=== PATIENT | male | born 1985 | race Caucasian/White ===

== ENCOUNTER 2024-10-18 19:57 | Emergency (ER) | payer MEDICAID ==
[~2024-10-18] VITALS: Ht 167.6 cm; Wt 90.2 kg
[~2024-10-18 19:57] MED LIST: POLY17PO10 PO
[2024-10-18 20:06] VITALS: BP 131/77; PULSE 62; RESP 16; O2SAT 98
[2024-10-18] MEDS ORDERED: SENN-302 PO (20:31)
--- NOTE | 2024-10-18 20:31 | Physician Documentation ---
History of Present Illness Chief Complaint: See Chief Complaint Stated Complaint: SOB Time Seen by MD: 20:24 Primary Medical Doctor: none HPI Patient is seen today with complaints of abdominal pain. Patient states he has been in and out of the ER in his 30 our visit and he has previously had CT scan and ultrasound done recently that showed no sign of gallbladder disease. Patient states he has right upper quadrant and left upper quadrant abdominal pain that vacillates and sometimes lower back pain. Patient states that he was previously given Relistor injection a week or so ago and he did pass a large amount of stool and felt better for time but states that he got back to begin this last week. He was given some MiraLax and senna but states he stopped taking it. He denies any fever or chills in his no other concern or complaint at this time. Medication Reconciliation Allergies: Coded Allergies: Penicillins (Unverified Allergy, Unknown, 10/18/24) Scheduled Polyethylene Glycol 3350* (Miralax*), 1 PKT PO DAILY Past Medical History Past Medical History: No Pertinent History Past Surgical History: noncontributory Patient History: FH: breast cancer FH: esophageal cancer Alcohol Use: Rarely Drug Use: methamphetamine Lives with: Family Lives In: Home Review of Systems Constitutional: Denies: chills, fever, weakness Eyes: Denies: pain, blurred vision ENT: Denies: ear pain, nose pain, throat pain, mouth pain Respiratory: Denies: cough, shortness of breath Cardiovascular: Denies: chest pain, palpitations Gastrointestinal: Denies: abdominal pain, nausea, vomiting Genitourinary: Denies: burning, dysuria Male Genitalia: Denies: penile discharge, testicular pain Neurological: Denies: headache, dizziness Musculoskeletal: Denies: pain, swelling Integumentary: Denies: rash, lesions Allergic/Immunologic: Denies: hives, itching Hematologic/Lymphatic: Denies: no symptoms reported Psychiatric: Denies: depression, anxiety Physical Exam Vital Signs: Temperature: 97.5, Source: Temporal, Heart Rate: 62, Respiratory Rate: 16, BP: 131/77, Pulse Oximetry: 98, Weight: 90.200 Oxygen Flow Rate: 0 Physical Exam General: Awake and Alert, no acute distress. HEENT: Conjunctiva pink, Sclera clear, Mucus Membranes moist. Neck: Supple without masses and tenderness. Resp: Unlabored. Lungs clear to auscultation bilaterally. Heart: Regular Rate and rhythm, normal S1 and S2 without murmur, rub or gallop. Abdomen: On exam patient does have mild right upper quadrant and left upper quadrant abdominal tenderness to palpation, abdomen is soft and nondistended and no masses, no guarding or rebound tenderness. Extremities: No cyanosis,clubbing or edema. Skin: Warm and Dry. Progress Results/Orders Results/Orders Vital Signs 10/18/24 20:06 Temp 97.5 Pulse 62 Resp 16 B/P (MAP) 131/77 Pulse Ox 98 O2 Flow Rate 0 Medical Decision Making Findings Patient is seen today with complaints of abdominal pain. Patient states he has been in and out of the ER in his 30 our visit and he has previously had CT scan and ultrasound done recently that showed no sign of gallbladder disease. Patient states he has right upper quadrant and left upper quadrant abdominal pain that vacillates and sometimes lower back pain. Patient states that he was previously given Relistor injection a week or so ago and he did pass a large amount of stool and felt better for time but states that he got back to begin this last week. He was given some MiraLax and senna but states he stopped taking it. He denies any fever or chills in his no other concern or complaint at this time. Patient was given senna and MiraLax in the ED tonight along with prescription for senna and stool softener. Patient will take as prescribed and will take MiraLax as well as needed. Patient will return to ED with any worsening, concerning or changing symptoms. Patient declined the Relistor injection today. Departure Disposition: 01 HOME / SELF CARE / HOMELESS Impression: Primary Impression: Opioid-induced constipation Condition: Stable Discharge Instructions: Chronic Constipation Additional Instructions: Patient was given senna and MiraLax in the ED tonight along with prescription for senna and stool softener. Patient will take as prescribed and will take MiraLax as well as needed. Patient will return to ED with any worsening, concerning or changing symptoms. Patient declined the Relistor injection today. Referrals: NO PRIMARY CARE PROVIDER (PCP) Prescriptions Sennosides/Docusate Sodium (Senna Plus 8.6-50 mg Tablet) 8.6 Mg-50 Mg Tablet 2 TAB PO TID for 14 Days, #84 TAB 0 Refills Prov: CASEY MALONEY PAC 10/18/24 Signature Scribe Signature: No scribe Attestation: No scribe CASEY MALONYE Oct 18, 2024 20:31
[2024-10-18 20:39] VITALS: TEMP 97.5
[2024-10-18] MEDS: polyethylene glycol 3350 17gm powd pack PO STA (20:41)
== END 2024-10-18 20:44 | disposition home or self-care (01) ==
LOC: ER 19:58
DX: K59.03 Drug induced constipation (principal); K59.00 Constipation, unspecified; M54.50 Low back pain, unspecified; R10.11 Right upper quadrant pain; Z88.0 Allergy status to penicillin; Y92.89 Other specified places as the place of occurrence of the external cause
CPT/HCPCS: 99283

== ENCOUNTER 2024-11-22 10:44 | Emergency (ER) | payer MEDICAID ==
[~2024-11-22] VITALS: Ht 167.6 cm; Wt 87.5 kg
[~2024-11-22 10:44] MED LIST changes: -POLY17PO10 PO; +SENN-302 PO
[2024-11-22 10:47] VITALS: TEMP 97.9
--- NOTE | 2024-11-22 10:52 | Physician Documentation ---
History of Present Illness ~ Chief Complaint: Constipation Stated Complaint: ABD PAIN Time Seen by MD: 10:50 Primary Medical Doctor: none HPI 39-year-old male presents to the ED with reported abdominal pain. Patient is a methadone patient and has been treated for constipation before via Relister. This is a bowel movement yesterday. denies any fevers reports increased abdominal pain in the left lower quad Has a history of hepatitis-C Day of Onset: Nov 22, 2024 Medication Reconciliation Allergies: Coded Allergies: Penicillins (Unverified Allergy, Unknown, 11/22/24) Scheduled Sennosides/Docusate Sodium (Senna Plus 8.6-50 mg Tablet), 2 TAB PO TID Past Medical History Past Medical History: No Pertinent History Past Surgical History: noncontributory Patient History: FH: breast cancer FH: esophageal cancer Alcohol Use: Rarely Drug Use: methamphetamine Lives with: Family Lives In: Home Review of Systems All Other Systems at this time: Reviewed and Negative ROS As stated above in the HPI, otherwise all systems are reviewed and negative. Physical Exam Vital Signs: Temperature: 97.9, Source: Oral, Heart Rate: 63, Respiratory Rate: 17, BP: 129/76, Pulse Oximetry: 99, Weight: 87.500 Physical Exam General: Alert, no apparent distress. Gastrointestinal: Soft, nontender, nondistended. Bowels sounds present. pain RLQ, and LLQ Neurologic: Oriented x4. Psychiatric: Normal mood and affect. Skin: Normal color, warm and dry. No edema, no ecchymosis. Progress Results/Orders Results/Orders Orders - DANIELE SOLO ASSISTANT COMMUNITY MANAGER Abdomen,Single View(Kub) (11/22/24 11:04) Completed Orders - DANIELE SOLO ASSISTANT COMMUNITY MANAGER Urinalysis, Cult If Indicated (11/22/24 11:02) Cbc/Diff (11/22/24 11:02) BMP (11/22/24 11:02) Lipase (11/22/24 11:02) CMP (11/22/24 11:02) Abdomen,Single View(Kub) (11/22/24 11:04) Methylnaltrexone Br Inj (Relistor Inj (11/22/24 11:15) Medications Received in ER Medications (Trade) Dose Ordered Sig/Re Route PRN Reason Start Time Stop Time Status Last Admin Dose Admin (Relistor inj SubQ only) 12 mg ONCE ONCE SQ 11/22/24 11:15 11/22/24 11:16 DC 11/22/24 12:43 12 MG Vital Signs 11/22/24 11/22/24 11/22/24 10:47 11:11 12:46 Temp 97.9 Pulse 63 68 Resp 17 18 B/P (MAP) 129/76 111/78 (89) Pulse Ox 99 96 O2 Flow Rate 0 Laboratory Tests Test 11/22/24 11:14 11/22/24 11:31 Urine Specimen Description Cln catch midstream Urine Color Yellow Urine Clarity Clear Urine pH 6.5 Urine Specific [place] >=1.030 Urine Protein Negative Urine Glucose (UA) Negative Urine Ketones Negative Urine Occult Blood Negative Urine Nitrite Negative Urine Bilirubin Negative Urine Urobilinogen 0.2 Urine Leukocyte Esterase Negative Urine Culture Indicated Not ind Volume Urine Centrifuged 10 ml Urine Comment White Blood Count 8.3 Red Blood Count 4.78 Hemoglobin 14.0 Hematocrit 41.4 L Mean Corpuscular Volume 86.5 Mean Corpuscular Hemoglobin 29.4 Mean Corpuscular Hemoglobin Concent 33.9 Red Cell Distribution Width 14.0 Platelet Count 238 Mean Platelet Volume 8.4 Neutrophils (%) (Auto) 51.9 Lymphocytes (%) (Auto) 38.7 Monocytes (%) (Auto) 7.3 Eosinophils (%) (Auto) 1.8 Basophils (%) (Auto) 0.3 Neutrophils # (Auto) 4.3 Lymphocytes # (Auto) 3.2 Monocytes # (Auto) 0.6 Eosinophils # (Auto) 0.1 Basophils # (Auto) 0.0 CBC Comment Sodium Level 143 Potassium Level 4.2 Chloride Level 107 Carbon Dioxide Level 28.8 Anion Gap 7 L Blood Urea Nitrogen 20 H Creatinine 0.93 Estimated GFR/1.73 m2 90 BUN/Creatinine Ratio 21.5 H Glucose Level 113 H Calcium Level 9.0 Total Bilirubin 0.5 Aspartate Amino Transf (AST/SGOT) 79 H Alanine Aminotransferase (ALT/SGPT) 164 H Alkaline Phosphatase 78 Total Protein 8.1 Albumin 3.9 Globulin 4.2 Albumin/Globulin Ratio 0.9 L Lipase 26 Chemistry Comments Medical Decision Making Findings This patient presents with suspected constipation secondary to ongoing methadone use. Dogs are unremarkable. I did provide him with Relistor while in the ED. I did talk to the patient at his symptoms if they persist after receiving med ication for discussed with the to take MiraLax while regularly receiving methadone. Specific on return precautions if his symptoms persist or worsen he needs to return to the ED Diff Dx GI Bleed:Consideration: Include: AE fistula, Angiodysplasia, Bleeding diathesis, Blood loss anemia, Carcinoma, Diverticulosis, Diverticulitis, Esophageal varicies, Esophagitis, Gastritis, Gastroenteritis, Inflammatory BD, Katheryn-John syndrome, Meckel's diverticulum, PUD, Other Departure Disposition: 01 HOME / SELF CARE / HOMELESS Impression: Primary Impression: Constipation Additional Impression: Opioid-induced constipation Condition: Stable Discharge Instructions: Constipation, Adult Referrals: NO PRIMARY CARE PROVIDER (PCP) Signature Scribe Signature: hy Attestation: Scribed for Daniele Solo License And Permit Specialist by Daniele Monroe NP . 11/22/24 12:52 DANIELE SOLO NP Nov 22, 2024 10:52
[2024-11-22 11:37] LABS: MEAN PLATELET VOLUME 8.4 FL (7.4-10.4); RED CELL DISTRIBUTION WIDTH 14.0 % (11.5-14.5)
[2024-11-22 11:37] LABS: LEUKOCYTE ESTERASE ,URINE NEGATIVE (Neg); NITRITES, URINE NEGATIVE (Neg); OCCULT BLOOD,URINE NEGATIVE (Neg)
[2024-11-22 11:42] LABS: UA COLLECTION TYPE CLN CATCH MIDSTREAM
[2024-11-22 11:56] LABS: CREATININE 0.93 MG/DL (0.60-1.10); TOTAL CARBON DIOXIDE 28.8 MMOL/L (24-32); eCRCL 95 ML/MIN; eGFR 90 ML/MIN
[2024-11-22] MEDS: methylnaltrexone br 12mg/0.6ml inj***SubQ only SQ ONE (12:43)
[2024-11-22 12:46] VITALS: BP 111/78; PULSE 68; RESP 18; O2SAT 96
--- NOTE | 2024-11-22 14:40 | RADIOLOGY REPORT ---
ABDOMEN, (KUB) ONE VIEW REASON FOR EXAM: constipation COMPARISON: DI ABDOMEN,SINGLE VIEW(KUB) on DOS: 09/23/24 TECHNIQUE: A single view of the abdomen is obtained. FINDINGS: The bowel gas pattern is nonobstructive. No abnormal calcification is identified. The colonic stool burden is small. There is no supine evidence of pneumoperitoneum. No acute osseous abnormality is identified. IMPRESSION: No acute abnormality.
== END 2024-11-22 13:39 | disposition home or self-care (01) ==
LOC: ER 10:45
DX: K59.03 Drug induced constipation (principal); T40.2X5A Adverse effect of other opioids, initial encounter; F15.90 Other stimulant use, unspecified, uncomplicated; Z88.0 Allergy status to penicillin; Y92.89 Other specified places as the place of occurrence of the external cause
CPT/HCPCS: 36415; 74018; 80053; 81003; 83690; 85025; 96372; 99284; J2212

== ENCOUNTER 2024-12-02 10:12 | Emergency (ER) | payer MEDICAID ==
[~2024-12-02] VITALS: Ht 167.6 cm; Wt 89.0 kg
[2024-12-02 12:18] LABS: STREP A SCREEN POSITIVE (Neg)
--- NOTE | 2024-12-02 12:20 | Physician Documentation ---
History of Present Illness ~ Chief Complaint: Sore Throat Stated Complaint: SORE THROAT Time Seen by MD: 10:47 Primary Medical Doctor: none HPI Patient is seen today with complaints of sore throat that started couple of days ago. Patient denies any dental pain and denies any fevers or chills or body aches and has no other concern or complaint at this time. Patient also complai ns of opioid induced constipation. And states he has taken Relistor successfully in the past. Medication Reconciliation Allergies: Coded Allergies: Penicillins (Unverified Allergy, Unknown, 12/02/24) Scheduled Clindamycin HCl (Clindamycin HCl), 1 CAP PO Q8H Ibuprofen (Ibuprofen), 1 TAB PO Q8H Methylprednisolone (Medrol Dosepak), 0 PO UD Sennosides/Docusate Sodium (Senna Plus 8.6-50 mg Tablet), 2 TAB PO TID Scheduled PRN Acetaminophen (Tylenol Extra Strength), 2 TAB PO Q6H PRN PRN for pain or fever Past Medical History Past Medical History: No Pertinent History Past Surgical History: noncontributory Patient History: FH: breast cancer FH: esophageal cancer Alcohol Use: Rarely Drug Use: methamphetamine Lives with: Family Lives In: Home Review of Systems Constitutional: Denies: chills, fever, weakness Eyes: Denies: pain, blurred vision ENT: Denies: ear pain, nose pain, throat pain, mouth pain Respiratory: Denies: cough, shortness of breath Cardiovascular: Denies: chest pain, palpitations Gastrointestinal: Denies: abdominal pain, nausea, vomiting Genitourinary: Denies: burning, dysuria Male Genitalia: Denies: penile discharge, testicular pain Neurological: Denies: headache, dizziness Musculoskeletal: Denies: pain, swelling Integumentary: Denies: rash, lesions Allergic/Immunologic: Denies: hives, itching Hematologic/Lymphatic: Denies: no symptoms reported Psychiatric: Denies: depression, anxiety Physical Exam Vital Signs: Temperature: 98.4, Source: Temporal, Heart Rate: 80, Respiratory Rate: 16, BP: 131/62, Pulse Oximetry: 99, Weight: 89.000 Oxygen Flow Rate: 0 Physical Exam General: Awake and Alert, no acute distress. HEENT: Patient exam does have significant erythema of the oropharynx with some mild deviation of the uvula with some swelling noted of the to peritonsillar fold and anterior pillar on the left side. Conjunctiva pink, Sclera clear, Mucus Membranes moist. Neck: Supple without masses and tenderness. Resp: Unlabored. Lungs clear to auscultation bilaterally. Heart: Regular Rate and rhythm, normal S1 and S2 without murmur, rub or gallop. Abdomen: Patient on exam has no guarding, no rebound, abdomen is nondistended, grossly nontender to palpation. Extremities: No cyanosis,clubbing or edema. Skin: Warm and Dry. Progress Results/Orders Results/Orders Orders - CASEY MALONEY Methylnaltrexone Br Inj (Relistor Inj (12/02/24 12:35) Completed Orders - CASEY MALONEY Strep A Rapid (12/02/24 12:03) Clindamycin Capsule (Cleocin Capsule) (12/02/24 12:07) Triamcinolone Acet 40mg/Ml Inj (Kenalog- (12/02/24 12:07) Influenza Type A&B Rapid Test (12/02/24 12:04) Ketorolac Trometh 30mg/Ml Vial (Toradol (12/02/24 12:21) Medications Received in ER Medications (Trade) Dose Ordered Sig/Re Route PRN Reason Start Time Stop Time Status Last Admin Dose Admin (Cleocin capsule) 300 mg ONCE STAT PO 12/02/24 12:07 12/02/24 12:14 DC 12/02/24 12:26 300 MG (Kenalog-40 inj) 80 mg ONCE STAT IM 12/02/24 12:07 12/02/24 12:14 DC 12/02/24 12:24 80 MG Vital Signs 12/02/24 10:18 Temp 98.4 Pulse 80 Resp 16 B/P (MAP) 131/62 Pulse Ox 99 O2 Flow Rate 0 Laboratory Tests Test 12/02/24 11:55 12/02/24 12:04 Group A Streptococcus Rapid Positive H Influenza Type A Antigen Negative Influenza Type B Antigen Negative Medical Decision Making Findings Patient is seen today with complaints of sore throat that started couple of days ago. Patient denies any dental pain and denies any fevers or chills or body aches and has no other concern or complaint at this time. Patient was given clindamycin 300 mg by mouth along with prescription and Kenalog 80 mg IM in the ED today. As well as Medrol Dosepak taper. Patient will take medication as prescribed and will return to ED in 1-2 days if no better as needed sooner. Departure Disposition: HOME / SELF CARE / HOMELESS Impression: Primary Impression: Peritonsillar abscess determined by examination Additional Impression: Opioid-induced constipation Discharge Instructions: Peritonsillar Abscess, [id number] Additional Instructions: Patient was given clindamycin 300 mg by mouth along with prescription and Kenalog 80 mg IM in the ED today. As well as Medrol Dosepak taper. Patient will take medication as prescribed and will return to ED in 1-2 days if no better as needed sooner. Patient was also given dose of Relistor in the ED today. Referrals: NO PRIMARY CARE PROVIDER (PCP) Prescriptions Methylprednisolone (Medrol Dosepak) 4 Mg Tab.ds.pk 0 PO UD, #21 TAB 0 Refills take 6 Pills Day 1, 5 Pills Day 2, 4 Pills Day 3, 3 Pills Day 4, 2 Pills Day 5 and 1 pill Day 6 Prov: CASEY MALONEY 12/02/24 Acetaminophen (Tylenol Extra Strength) 500 Mg Tablet 2 TAB PO Q6H PRN PRN for pain or fever for 7 Days, #56 TAB Prov: CASEY MALONEY 12/02/24 Ibuprofen (Ibuprofen) 800 Mg Tablet 1 TAB PO Q8H for pain for 10 Days, #30 TAB 0 Refills Prov: CASEY MALONEY 12/02/24 Clindamycin HCl (Clindamycin HCl) 300 Mg Capsule 1 CAP PO Q8H for 10 Days, #30 CAP Prov: CASEY MALONEY 12/02/24 Signature Scribe Signature: No scribe Attestation: No scribe CASEY MALONEY Dec 02, 2024 12:20
[2024-12-02] MEDS ORDERED: IBUP-1986 PO (12:23)
[2024-12-02] MEDS ORDERED: ACET-1025 PO (12:23)
[2024-12-02] MEDS ORDERED: METH4TAB81 PO (12:23)
[2024-12-02] MEDS ORDERED: CLIN300C71 PO (12:23)
[2024-12-02] MEDS: triamcinolone acetonide 40mg/ml inj IM STA (12:24)
[2024-12-02 12:29] LABS: INFLUENZA TYPE A ANTIGEN RAPID NEGATIVE (Negative); INFLUENZA TYPE B ANTIGEN RAPID NEGATIVE (Negative)
[2024-12-02] MEDS: methylnaltrexone br 12mg/0.6ml inj***SubQ only SQ ONE (12:41)
[2024-12-02] MEDS: ketorolac trometh 30MG/ML vial 30 MG/ML VIAL IM STA (12:41)
[2024-12-02 12:54] VITALS: BP 131/62; PULSE 80; RESP 16; TEMP 98.4; O2SAT 99
== END 2024-12-02 12:52 | disposition home or self-care (01) ==
LOC: ER 10:13
DX: J36 Peritonsillar abscess (principal); K59.03 Drug induced constipation; T40.2X5A Adverse effect of other opioids, initial encounter; F15.90 Other stimulant use, unspecified, uncomplicated; Z88.0 Allergy status to penicillin; Y92.89 Other specified places as the place of occurrence of the external cause
CPT/HCPCS: 87804; 87880; 96372; 99284; J1885; J2212; J3301